=== PATIENT | male | born 1995 | race Caucasian/White ===

== ENCOUNTER 2017-02-28 13:54 | Emergency (ER) | payer OTHER, BC ==
[~2017-02-28] VITALS: Ht 180.3 cm; Wt 65.0 kg
[~2017-02-28 13:54] MED LIST: NAPROXEN500 MG PO
[2017-02-28 15:47] LABS: HEMATOCRIT 45.2 % (38.0-50.0); MCH 29.9 PG (29.0-34.0); MCV 85.4 FL (86-99); MEAN PLAT.VOLUME 11.1 uM^3 (9.0-12.4); PLATELET COUNT 227 K/uL (156-360); RBC DIS.WIDTH-CV 12.2 % (11.8-14.6); RBC DIS.WIDTH-SD 37.9 % (39-53); RED BLOOD COUNT 5.29 M/uL (4.00-5.50); WHITE BLOOD COUNT 11.1 K/uL (4.1-10.2)
[2017-02-28 15:56] LABS: CHLORIDE 105 mEq/L (99-109); SODIUM 140 mEq/L (136-147)
[2017-02-28 15:59] LABS: GLUCOSE 105 mg/dL (70-99)
[2017-02-28 16:00] LABS: ANION GAP 11 MEQ/L (2-14)
[2017-02-28 16:01] LABS: TOTAL BILIRUBIN 0.5 mg/dL (0.0-1.0)
[2017-02-28 16:02] LABS: ALKALINE PHOSPHATASE 87 IU/L (3-129); GFR ESTIMATE (CALCULATED) > 59 mL/min/
[2017-02-28 16:03] LABS: UREA NITROGEN (BUN) 16 mg/dL (9-23)
[2017-02-28 16:30] LABS: ADD MIUA? YES; BILIRUBIN NEGATIVE; BLOOD NEGATIVE; COLOR AMBER ((YELLOW)); GLUCOSE (STRIP) NEGATIVE; KETONES 5; LEUKOCYTES NEGATIVE; NITRITE NEGATIVE; PROTEIN (STRIP) 100; SPECIFIC GRAVITY 1.039 (1.000-1.030); UROBILINOGEN 0.2 MG/DL (0.2-1.0)
[2017-02-28] MEDS ORDERED: NAPROSYN500 MG PO (16:42)
[2017-02-28] MEDS ORDERED: FLEXERIL10 MG PO (16:42)
[2017-02-28] MEDS ORDERED: ZOFRAN ODT4 MG PO (16:42)
[2017-02-28 16:48] LABS: BACTERIA NONE SEEN /HPF; EPITHELIAL CELLS NONE SEEN /HPF; MUCUS 4+ /LPF; RED BLOOD CELLS 0-5 /HPF (0-5); UCUL ADDED? NO; WHITE BLOOD CELLS 0-5 /HPF (0-5)
[2017-02-28 17:23] VITALS: BP 120/80
== END 2017-02-28 17:24 | disposition home or self-care (01) ==
LOC: EME 13:54
PROVIDERS: Nurse Practitioner Family
DX: B34.9 Viral infection, unspecified (principal); S46.811A Strain of other muscles, fascia and tendons at shoulder and upper arm level, right arm, initial encounter; V49.60XA Unspecified car occupant injured in collision with unspecified motor vehicles in traffic accident, initial encounter; R11.2 Nausea with vomiting, unspecified; M62.838 Other muscle spasm; R51 Headache; F17.200 Nicotine dependence, unspecified, uncomplicated; Z76.0 Encounter for issue of repeat prescription
CPT/HCPCS: 80053; 81003; 85027; 99281; 99283; J3010

== ENCOUNTER → 2017-03-24 | Outpatient (CLI) | payer BC ==
[~2017-03-24] MED LIST changes: +FLEXERIL10 MG PO; +NAPROSYN500 MG PO; +ZOFRAN ODT4 MG PO
== END | disposition home or self-care (01) ==
LOC: NUC 10:22
DX: R10.84 Generalized abdominal pain (principal); R10.819 Abdominal tenderness, unspecified site
CPT/HCPCS: 78226; A9537

== ENCOUNTER 2017-05-08 16:27 | Emergency (ER) | payer BC ==
[~2017-05-08] VITALS: Ht 170.2 cm; Wt 61.2 kg
[2017-05-08 17:41] LABS: HEMATOCRIT 39.6 % (38.0-50.0); MCH 30.2 PG (29.0-34.0); MCHC 35.9 G/DL (30.0-36.0); MCV 84.3 FL (86-99); MEAN PLAT.VOLUME 10.4 uM^3 (9.0-12.4); PLATELET COUNT 248 K/uL (156-360); RBC DIS.WIDTH-CV 12.1 % (11.8-14.6); RBC DIS.WIDTH-SD 36.6 % (39-53); WHITE BLOOD COUNT 14.6 K/uL (4.1-10.2)
[2017-05-08 17:50] LABS: CHLORIDE 106 mEq/L (99-109); POTASSIUM 3.4 mEq/L (3.7-5.4); SODIUM 140 mEq/L (136-147)
[2017-05-08 17:52] LABS: GLUCOSE 92 mg/dL (70-99)
[2017-05-08 17:53] LABS: ANION GAP 10 MEQ/L (2-14)
[2017-05-08 17:54] LABS: TOTAL BILIRUBIN 0.7 mg/dL (0.0-1.0)
[2017-05-08 17:55] LABS: ALKALINE PHOSPHATASE 68 IU/L (3-129); SERUM ETHYL ALCOHOL < 10 mg/dL
[2017-05-08 17:56] LABS: GFR ESTIMATE (CALCULATED) > 59 mL/min/
[2017-05-08 17:57] LABS: UREA NITROGEN (BUN) 16 mg/dL (9-23)
[2017-05-08 17:59] LABS: CREATINE KINASE 149 IU/L (1-294)
[2017-05-08 18:20] LABS: ADD MIUA? YES; BILIRUBIN NEGATIVE; BLOOD NEGATIVE; COLOR YELLOW ((YELLOW)); GLUCOSE (STRIP) NEGATIVE; KETONES 5; LEUKOCYTES NEGATIVE; NITRITE NEGATIVE; PROTEIN (STRIP) 30; SPECIFIC GRAVITY 1.025 (1.000-1.030); UROBILINOGEN 0.2 MG/DL (0.2-1.0)
[2017-05-08 18:30] LABS: ADD MEDTOX COMMENT Y; AMPHETAMINE NEGATIVE (500 ng/mL); BARBITURATES NEGATIVE (200 ng/mL); BENZODIAZEPINES NEGATIVE (150 ng/mL); COCAINE PRESUMPTIVE POSITIVE (150 ng/mL); INTERNAL CONTROLS VALID? YES; METHADONE NEGATIVE (200 ng/mL); METHAMPHETAMINE NEGATIVE (500 ng/mL); OPIATES (MORPHINE) PRESUMPTIVE POSITIVE (100 ng/mL); OXYCODONE NEGATIVE (100 ng/mL); PHENCYCLIDINE NEGATIVE (25 ng/mL); PROPOXYPHENE NEGATIVE (300 ng/mL); THC CANNABINOIDS PRESUMPTIVE POSITIVE (50 ng/mL); TRICYCLIC ANTIDEPRESSANTS NEGATIVE (300 ng/mL)
[2017-05-08 18:43] LABS: BACTERIA NONE SEEN /HPF; CALCIUM OXALATE CRYSTALS FEW /HPF; CRYSTALS PRESENT; EPITHELIAL CELLS NONE SEEN /HPF; MUCUS 2+ /LPF; RED BLOOD CELLS NONE SEEN /HPF (0-5); WHITE BLOOD CELLS NONE SEEN /HPF (0-5)
[2017-05-08 20:32] VITALS: BP 107/76
== END 2017-05-08 20:34 | disposition home or self-care (01) ==
LOC: EME 16:27
PROVIDERS: Emergency Medicine
DX: F11.10 Opioid abuse, uncomplicated (principal); F14.10 Cocaine abuse, uncomplicated; F17.200 Nicotine dependence, unspecified, uncomplicated; Z88.0 Allergy status to penicillin
CPT/HCPCS: 70450; 80053; 81003; 82550; 84999; 85027; 90837; 99281; 99285; G0480